=== PATIENT | female | born 1940 | race Caucasian/White ===

== ENCOUNTER → 2016-12-15 | Outpatient (CLI) | payer BC ==
[~2016-12-15] MED LIST: AMLO-110 PO; ASPEC81 PO; CHOL100010 PO; CHOL1TAB76 PO; ESOM20CA PO; FLUT50SP45 NAE; GABA-113 PO; HYDC25 PO; METO25TA3 PO; METO50TA7 PO; NXM/40 PO; OMEG10007 PO; POTA10CA28 PO; QSTP PO; SIMV40TA2 PO; ZNTT/150 PO
--- NOTE | 2016-12-15 15:07 | MAMMOGRAPHY REPORT ---
BILATERAL DIGITAL SCREENING MAMMOGRAM TOMOSYNTHESIS WITH CAD: 12/15/2016 CLINICAL HISTORY: Routine screening. Patient has no complaints. TECHNIQUE: Breast tomosynthesis in addition to standard 2D mammography was performed. Current study was also evaluated with a Computer Aided Detection (CAD) system. COMPARISON: Comparison is made to exams dated: 03/29/2016 mammogram, 03/29/2016 ultrasound, 12/15/2015 m ammogram, 11/17/2014 mammogram, 10/25/2013 mammogram, and 09/26/2012 mammogram - [facility] nt. BREAST COMPOSITION: The tissue of both breasts is almost entirely fatty. FINDINGS: No suspicious masses, calcifications, or areas of architectural distortion are noted in e ither breast. There has been no significant interval change compared to prior exams. IMPRESSION: ACR BI-RADS CATEGORY 1: NEGATIVE There is no mammographic evidence of malignancy. A 1 year screening mammogram is recommended. The p atient will receive written notification of the results. Approximately 10% of breast cancers are not detected with mammography. A negative mammographic repor t should not delay biopsy if a clinically suggestive mass is present. Manju Basilio M.D. /:12/15/2016 13:23:53 Air Carrier Inspector: Aura EDWARD(Eze)(M), [facility] letter sent: Normal 1/2 BI-RADS Code: ACR BI-RADS Category 1: Negative
== END | disposition home or self-care (01) ==
LOC: C.MAMM 08:52
PROVIDERS: ATTEND Obstetrics & Gynecology
DX: Z12.31 Encounter for screening mammogram for malignant neoplasm of breast (principal)

== ENCOUNTER → 2017-03-13 | Outpatient (CLI) | payer BC ==
[2017-03-13 14:08] LABS: ALT/SGPT 27 U/L (12-78); AST/SGOT 17 U/L (15-37); BLOOD UREA NITROGEN 22 mg/dl (7-18); BUN/CREATININE RATIO 19.5 (10-20); CARBON DIOXIDE 27 mmol/L (21-32); CHLORIDE 105 mmol/L (98-107); CHOLESTEROL 156 mg/dl (0-200); GLUCOSE 101 mg/dl (70-99); POTASSIUM 3.3 mmol/L (3.5-5.1); SODIUM 140 mmol/L (136-145); TRIGLYCERIDES 115 mg/dl (0-150); VERY LOW DENSITY LIPOPROT CALC 23 mg/dl
[2017-03-13 14:11] LABS: CHOLESTEROL/HDL RATIO 2.1; HDL CHOLESTEROL 75 mg/dl; LDL CHOLESTEROL CALCULATED 58 mg/dl
== END | disposition home or self-care (01) ==
LOC: C.LABBC 10:05
PROVIDERS: ATTEND Internal Medicine
DX: R73.9 Hyperglycemia, unspecified (principal); E78.5 Hyperlipidemia, unspecified; E55.9 Vitamin D deficiency, unspecified

== ENCOUNTER → 2017-04-26 | Day surgery (SDC) | payer BC ==
[2017-04-11 13:54] VITALS: BMI 33.0
[~2017-04-26] VITALS: Ht 160 cm; Wt 85.5 kg
[~2017-04-26] MED LIST changes: -CHOL100010 PO; +LIDOCAINE HCL 2% 2 ML VIAL (20MG/ML) ONE; -METO25TA3 PO; +MIDAZOLAM HCL 1 MG/ML 2ML VIAL ONE; -NXM/40 PO; +ONDANSETRON INJ 2 MG/ML 2 ML VIAL ONE; +PROPOFOL IV EMULSION 10 MG/ML 20 ML VIAL IV ONE; +SODIUM CHLORIDE 0.9% 500ML 500 ML IV ONE
[2017-04-26 09:15] VITALS: Ht 160 cm; Wt 85.5 kg
[2017-04-26 09:20] VITALS: TEMP 36.7
--- NOTE | 2017-04-26 09:26 | Endo History and Physical ---
History & Physical Date of Service: Apr 26, 2017. Chief Complaint: screening Referring Physician: Dr. Hernandez History of Present Illness 77 yo CF who presents for screening colonoscopy. Past Surgical History Hx Cardiac Surgery: No Hx Internal Defibrillator: No Hx Pacemaker: No Hx Abdominal Surgery: Yes (FIBROID TUMOR REMOVAL, AILYN BSO, HERNIA REPAIR X5 TOTAL) Hx of Implantable Prosthesis: No Hx Post-Op Nausea and Vomiting: No Hx Cancer Surgery: No Hx Thoracic Surgery: No Hx Orthopedic: No Hx Urinary Tract Surgery: No Family History None Social History Smoking Status: Never Smoker Hx Substance Use: No Hx Alcohol Use: Yes (1 GLASS WINE/MONTH) Allergies Coded Allergies: Sulfa Drugs (Verified Allergy, Unknown, NEVER TAKEN AND WON'T TOUCH - FAMILY HX., 04/11/17) Current Medications Reported Home Medications Medications Dose Route/Sig Max Daily Dose Days Date Category Dose Instructions Zantac (Ranitidine HCl) 150 Mg Tab 150 Mg PO DAILY PRN 04/11/17 Reported Neurontin (Gabapentin) 300 Mg Cap 300 Mg PO TID PRN 04/11/17 Reported Allergy Nasal [place] 24 Ho (Fluticasone Propionate (Nasal)) 50 Mcg/Act Spr 2 [place] MATHEW DAILY PRN 04/11/17 Reported D 2000 (Cholecalciferol) 2,000 Unit Tab 1 Tab PO QAM 04/11/17 Reported Nexium (Esomeprazole Magnesium) 20 Mg Cap 20 Mg PO QAM 04/11/17 Reported Toprol-Xl (Metoprolol Succinate) 50 Mg Tabcr 50 Mg PO QPM 04/11/17 Reported Micro-K Ext Rel (Potassium Chloride) 10 Meq Capcr 10 Meq PO QAM 10/23/13 Reported Cholestyramine Light (Cholestyramine) 4 Gm Pack 4 Grams PO DAILY PRN 10/16/13 Reported Ecotrin Or Generic * (Aspirin) 81 Mg Ectab 81 Mg PO QPM 03/13/12 Reported Norvasc (Amlodipine Besylate) 5 Mg Tab 5 Mg PO QAM 03/13/12 Reported [place]-3 (Fish Oil) 1 Ea Cap 1 Cap PO DAILY 02/09/09 Reported Zocor (Simvastatin) 40 Mg Tab 40 Mg PO Q2D 09/17/08 Reported Q2D IN PM Hctz * (Hydrochlorothiazide) 25 Mg Tab 25 Mg PO QAM 11/10/08 Reported Vital Signs Weight (Kilograms): 85.45 Height (Feet): 5 Height (Inches): 3 Date Time Temp Pulse Resp B/P (MAP) Pulse Ox O2 Delivery O2 Flow Rate FiO2 04/26/17 09:20 36.7 50 18 175/78 (110) 97 Room Air Physical Exam General Appearance: WD/WN, no apparent distress Respiratory/Chest: Auscultation: breath sounds normal Cardiovascular: Heart Auscultation: RRR Abdomen: Bowel Sounds: normal Inspection & Palpation: soft, non-distended, no tenderness, guarding & rebound Assessment and Plan Assessment: 77 yo CF who presents for screening colonoscopy. Plan: Proceed with colonoscopy.
--- NOTE | 2017-04-26 10:06 | GI REPORT ---
Procedure Date: 04/26/2017 9:38 AM THIS REPORT HAS BEEN AMENDED Addendum Number: 1 Addendum Date: 04/26/2017 10:36:08 AM No repeat colonoscopy secondary to patient's age and lack of adenomas. Procedure: Colonoscopy Indications: Screening for colorectal malignant neoplasm Medicines: Monitored Anesthesia Care Complications: No immediate complications. Estimated Blood Loss: Estimated blood loss: none. Procedure: Pre-Anesthesia Assessment: - Prior to the procedure, a History and Physical was performed, and patient medications and allergies were reviewed. The patient's tolerance of previous anesthesia was also reviewed. The risks and benefits of the procedure and the sedation options and risks were discussed with the patient. All questions were answered, and informed consent was obtained. Prior Anticoagulants: The patient has taken aspirin, last dose was 1 day prior to procedure. ASA Grade Assessment: II - A patient with mild systemic disease. After reviewing the risks and benefits, the patient was deemed in satisfactory condition to undergo the procedure. After I obtained informed consent, the scope was passed under direct vision. Throughout the procedure, the patient's blood pressure, pulse, and oxygen saturations were monitored continuously. The Scope was introduced through the anus and advanced to the terminal ileum. The colonoscopy was performed without difficulty. The patient tolerated the procedure well. The quality of the bowel preparation was good. The terminal ileum, ileocecal valve, appendiceal orifice, and rectum were photographed. Findings: Multiple small-mouthed diverticula were found in the sigmoid colon. Non-bleeding internal hemorrhoids were found during retroflexion. The hemorrhoids were small. Impression: - Diverticulosis in the sigmoid colon. - Non-bleeding internal hemorrhoids. - No specimens collected. Recommendation: - Resume previous diet. - Continue present medications. - Repeat colonoscopy in 10 years for surveillance. - Return to primary care physician as previously scheduled. Gene Latia Amador DO 04/26/2017 10:06:17 AM This report has been signed electronically. Note Initiated On: 04/26/2017 9:38 AM I attest to the content of the Intraoperative Record and orders documented therein, exceptions below Gene GBijan Amador DO 04/26/2017 10:36:30 AM This report has been signed electronically.
[2017-04-26 10:32] VITALS: BP 134/69; PULSE 50; O2SAT 96
--- NOTE | 2017-04-26 10:33 | Discharge Instructions ---
Endoscopy Patient Instructions Date / Procedure(s) Performed Apr 26, 2017. Colonoscopy Allergy Information Coded Allergies: Sulfa Antibiotics (Verified Allergy, Unknown, NEVER TAKEN AND WON'T TOUCH - FAMILY HX., 04/26/17) Discharge Date / Findings Apr 26, 2017. Diverticulosis Internal hemorrhoids Medication Instructions OK to resume all medications today as prescribed Reported Home Medications Medications Dose Route/Sig Max Daily Dose Days Date Category Dose Instructions Zantac (Ranitidine HCl) 150 Mg Tab 150 Mg PO DAILY PRN 04/11/17 Reported Neurontin (Gabapentin) 300 Mg Cap 300 Mg PO TID PRN 04/11/17 Reported Allergy Nasal [place] 24 Ho (Fluticasone Propionate (Nasal)) 50 Mcg/Act Spr 2 [place] MATHEW DAILY PRN 04/11/17 Reported D 2000 (Cholecalciferol) 2,000 Unit Tab 1 Tab PO QAM 04/11/17 Reported Nexium (Esomeprazole Magnesium) 20 Mg Cap 20 Mg PO QAM 04/11/17 Reported Toprol-Xl (Metoprolol Succinate) 50 Mg Tabcr 50 Mg PO QPM 04/11/17 Reported Micro-K Ext Rel (Potassium Chloride) 10 Meq Capcr 10 Meq PO QAM 10/23/13 Reported Cholestyramine Light (Cholestyramine) 4 Gm Pack 4 Grams PO DAILY PRN 10/16/13 Reported Ecotrin Or Generic * (Aspirin) 81 Mg Ectab 81 Mg PO QPM 03/13/12 Reported Norvasc (Amlodipine Besylate) 5 Mg Tab 5 Mg PO QAM 03/13/12 Reported [place]-3 (Fish Oil) 1 Ea Cap 1 Cap PO DAILY 02/09/09 Reported Zocor (Simvastatin) 40 Mg Tab 40 Mg PO Q2D 09/17/08 Reported Q2D IN PM Hctz * (Hydrochlorothiazide) 25 Mg Tab 25 Mg PO QAM 11/10/08 Reported Provider Instructions Activity Restrictions - No exercising or heavy lifting for 24 hours. - Do not drink alcohol the day of the procedure. - Do not drive a car or operate machinery until the day after the procedure. - Do not make any important decisions or sign important papers in 24 hours after the procedure. Following Day: - Return to full activity which may include returning to work/school. Diet Start your diet with liquids and light foods (jello, soup, juice, toast). Then eat your usual diet if not nauseated. Treatment For Common After Affects For mild abdominal pain, bloating, or excessive gas: - Rest - Eat lightly - Lie on right side Follow-Up Information Follow-up with Dr. Hernandez as scheduled Anesthesia Information What You Should Know You have had a procedure that required some medicine to reduce anxiety and discomfort. This treatment is called moderate sedation. After receiving the treatment, you may be sleepy, but you will be able to breathe on your own. The effects of the treatment may last for several hours. Follow these instructions along with Activity/Diet recommendations noted above: * Do NOT do anything where dizziness or clumsiness would be dangerous. * Rest quietly at home today, then you can be up and about tomorrow. * Have a responsible person stay with you the rest of today. * You may have had an I.V. today. If so, you may take the dressing off later today. Recommendations Call your doctor if: * Trouble breathing * Continuous vomiting for more than 24 hours * Temperature above 101 degrees * Severe abdominal pain or bloating * Pain not relieved by pain medicine ordered * There is increased drainage or redness from any incision * A large amount of rectal bleeding greater than 2-3 tablespoons. (If you had a polyp/s removed or have hemorrhoids, a small amount of blood - from the rectum is to be expected.) * You have any unanswered questions or concerns. IN THE EVENT OF A SERIOUS EMERGENCY, GO TO THE NEAREST EMERGENCY ROOM Your discharge instructions were prepared by provider Gene Amador. Patient Instructions Signature Page Day Pierce Patient (or Guardian) Signature/Date: I have read and understand the instructions given to me by my caregivers. Caregiver/RN/Doctor Signature/Date: The above-named patient and/or guardian has received patient instructions on this date. + Original Patient Signature Page (only) stays with chart. Please make copy for patient.
--- NOTE | 2017-04-26 10:46 | Anesthesiology Progress Note ---
Anesthesia Post Op Note Date & Time Apr 26, 2017 at 10:46 Vital Signs Pain Intensity: 0 Vital Signs Past 12 Hours Date Time Temp Pulse Resp B/P (MAP) Pulse Ox O2 Delivery O2 Flow Rate FiO2 04/26/17 10:32 50 16 134/69 (90) 96 Room Air 04/26/17 10:17 52 16 123/45 (71) 95 Room Air 04/26/17 10:02 43 16 113/60 (77) 95 Room Air 04/26/17 09:20 36.7 50 18 175/78 (110) 97 Room Air Notes Mental Status: alert / awake / arousable, participated in evaluation Pt Amnestic to Procedure: Yes Nausea / Vomiting: adequately controlled Pain: adequately controlled Airway Patency, RR, SpO2: stable & adequate BP & HR: stable & adequate Hydration State: stable & adequate Anesthetic Complications: no major complications apparent
== END | disposition home or self-care (01) ==
LOC: C.GI 09:01
PROVIDERS: ATTEND Internal Medicine
DX: K57.30 Diverticulosis of large intestine without perforation or abscess without bleeding (principal); K64.8 Other hemorrhoids

== ENCOUNTER → 2017-05-08 | Outpatient (CLI) | payer BC ==
[~2017-05-08] MED LIST changes: -LIDOCAINE HCL 2% 2 ML VIAL (20MG/ML) ONE; -MIDAZOLAM HCL 1 MG/ML 2ML VIAL ONE; -ONDANSETRON INJ 2 MG/ML 2 ML VIAL ONE; -PROPOFOL IV EMULSION 10 MG/ML 20 ML VIAL IV ONE; -SODIUM CHLORIDE 0.9% 500ML 500 ML IV ONE
--- NOTE | 2017-05-08 18:12 | DIAGNOSTIC IMAGING REPORT ---
LEFT FEMUR 3 VIEWS CLINICAL HISTORY: Left thigh pain. FINDINGS: AP, frog-leg, and lateral views of the left femur are obtained. Correlation is made with radiographs of left hip dated 10/15/2004. The skeletal structures are osteopenic. No left femoral fracture is seen. The visualized left hemipelvis appears intact. 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 Sclerotic change is noted in the left sacroiliac joint. The overlying soft tissues are within normal limits. Postoperative change projects over the pelvis. IMPRESSION: No acute bony abnormality is seen in the left femur. Electronically signed by: Ang Soliman M.D. 05/08/2017 6:10 PM Dictated Date/Time: 05/08/2017 6:09 PM
--- NOTE | 2017-05-08 18:35 | DIAGNOSTIC IMAGING REPORT ---
LEFT VENOUS DOPP LOWER EXT UNILAT CLINICAL HISTORY: 77 years-old Female presenting with M79.652 Acute thigh pain, left thigh severe pain , no trauma. TECHNIQUE: Real-time grayscale and color and spectral Doppler ultrasound imaging of the veins of the left lower extremity was performed. Compression and augmentation were also utilized. COMPARISON: None. FINDINGS: Left: Common femoral vein: Patent. Femoral vein: Patent. Greater saphenous vein: Patent. Popliteal vein: Patent. Calf veins: Limited visualization. Other: None. IMPRESSION: No evidence of deep venous thrombosis. Electronically signed by: Luca Luciano M.D. 05/08/2017 6:34 PM Dictated Date/Time: 05/08/2017 6:33 PM
== END | disposition home or self-care (01) ==
LOC: C.ULTR 17:28
PROVIDERS: ATTEND Internal Medicine
DX: M79.652 Pain in left thigh (principal)

== ENCOUNTER → 2017-09-11 | Outpatient (CLI) | payer BC ==
[2017-09-11 11:27] LABS: HEMOGLOBIN A1C 5.7 % (4.5-5.6)
[2017-09-11 11:46] LABS: BLOOD UREA NITROGEN 16 mg/dl (7-18); CALCIUM 9.1 mg/dl (8.5-10.1); CARBON DIOXIDE 27 mmol/L (21-32); CREATININE 1.03 mg/dl (0.60-1.20); GLUCOSE 106 mg/dl (70-99); POTASSIUM 3.6 mmol/L (3.5-5.1); SODIUM 138 mmol/L (136-145)
[2017-09-11 11:49] LABS: CHOLESTEROL 119 mg/dl (0-200); LDL CHOLESTEROL CALCULATED 48 mg/dl
== END | disposition home or self-care (01) ==
LOC: C.LABBC 08:31
PROVIDERS: ATTEND Internal Medicine
DX: E78.5 Hyperlipidemia, unspecified (principal); R73.9 Hyperglycemia, unspecified; E87.6 Hypokalemia; E55.9 Vitamin D deficiency, unspecified

== ENCOUNTER → 2017-12-20 | Outpatient (CLI) | payer BC ==
[~2017-12-20] MED LIST changes: -METO50TA7 PO; +METO50TA8 PO; +RANI150T85 PO; -ZNTT/150 PO
--- NOTE | 2017-12-20 15:46 | MAMMOGRAPHY REPORT ---
BILATERAL DIGITAL SCREENING MAMMOGRAM TOMOSYNTHESIS WITH CAD: 12/20/2017 CLINICAL HISTORY: Routine screening. Patient has no complaints. TECHNIQUE: Breast tomosynthesis in addition to standard 2D mammography was performed. Current study was also evaluated with a Computer Aided Detection (CAD) system. COMPARISON: Comparison is made to exams dated: 12/15/2016 mammogram, 03/29/2016 mammogram, 12/15/2015 ma mmogram, 11/17/2014 mammogram, 10/25/2013 mammogram, and 09/26/2012 mammogram - [facility] er. BREAST COMPOSITION: The tissue of both breasts is almost entirely fatty. FINDINGS: No suspicious masses, calcifications, or areas of architectural distortion are noted in ei ther breast. There has been no significant interval change compared to prior exams. Scattered benign- appearing calcifications are not significantly changed. IMPRESSION: ACR BI-RADS CATEGORY 2: BENIGN There is no mammographic evidence of malignancy. A 1 year screening mammogram is recommended. The pa tient will receive written notification of the results. Approximately 10% of breast cancers are not detected with mammography. A negative mammographic report should not delay biopsy if a clinically suggestive mass is present. Manju Basilio M.D. ah/:12/20/2017 08:52:37 Claim Clerk: Tess EDWARD(Eze)(Nicolasa)(AMMON), [facility] letter sent: Normal 1/2 BI-RADS Code: ACR BI-RADS Category 2: Benign
== END | disposition home or self-care (01) ==
LOC: C.MAMM 08:02
PROVIDERS: ATTEND Internal Medicine
DX: Z12.31 Encounter for screening mammogram for malignant neoplasm of breast (principal)